=== PATIENT | female | born 1965 | race Caucasian/White ===

== ENCOUNTER 2018-10-17 17:48 | Outpatient (CLI) | payer OTHER ==
[2014-01-20 06:37] VITALS: BMI 21.3
[~2018-10-17 17:48] MED LIST: NORCO 5/325 TAB1 TA1 PO
== END 2018-10-17 23:59 | disposition home or self-care (01) ==
LOC: D.MAMMO 17:48
DX: Z12.31 Encounter for screening mammogram for malignant neoplasm of breast (principal)

== ENCOUNTER 2019-12-20 10:29 | Emergency (ER) | payer BC ==
[~2019-12-20] VITALS: Ht 162.6 cm; Wt 55.5 kg
[2019-12-20 10:36] VITALS: Ht 162.6 cm; Wt 55.5 kg
[2019-12-20 11:16] LABS: BASOPHILS 0.2 % (0-2); EOSINOPHILS 2.6 % (0-7); HEMATOCRIT 42.2 % (36.0-48.0); HEMOGLOBIN 13.6 g/dL (12-16); MCH 30.9 pg (26.0-34.0); MCHC 32.2 g/dL (31.0-37.0); MCV 95.9 fL (80.0-100.0); MEAN PLATELET VOLUME 10.2 fL (7.4-10.4); MONOCYTES 10.7 % (2-11); NEUTROPHILS 50.5 % (40-80); RDW 12.5 % (11.5-14.5)
[2019-12-20 11:18] LABS: BILIRUBIN NEGATIVE (NEGATIVE); GLUCOSE NEGATIVE (NEGATIVE); KETONE NEGATIVE (NEGATIVE); NITRITE NEGATIVE (NEGATIVE); UROBILINOGEN NORMAL (NORMAL)
[2019-12-20 11:19] LABS: PLATELET COUNT 207 10x3/uL (130-400)
[2019-12-20 11:24] LABS: ANION GAP 8.9 mmol/L (8-16); CALCIUM 9.3 mg/dL (8.5-10.1); CARBON DIOXIDE 33.3 mmol/L (21.0-32.0); POTASSIUM - SERUM 4.2 mmol/L (3.5-5.1)
[2019-12-20 11:30] LABS: ALBUMIN 3.9 g/dL (3.4-5.0); BILIRUBIN - TOTAL 0.15 mg/dL (0.2-1.3); PROTEIN - SERUM 7.5 g/dL (6.4-8.2)
[2019-12-20] MEDS ORDERED: ZOFRAN ODT4 MG/UDTAB PO (13:01)
[2019-12-20] MEDS ORDERED: TORADOL10 MG PO (13:01)
[2019-12-20 13:10] VITALS: BP 106/61
== END 2019-12-20 13:11 | disposition home or self-care (01) ==
LOC: D.ER 10:29
PROVIDERS: Emergency Medicine
DX: R07.89 Other chest pain (principal); R07.81 Pleurodynia